=== PATIENT | female | born 1980 | race Caucasian/White ===

== ENCOUNTER 2016-11-22 05:36 | Day surgery (SDC) | payer OTHER ==
[~2016-11-22] VITALS: Ht 165.1 cm; Wt 64.6 kg
[~2016-11-22 05:36] MED LIST: ONDA-43 PO; PANT40TA3 PO; UDREG PO
[2016-11-22 06:34] VITALS: Ht 165.1 cm; Wt 64.6 kg
[2016-11-22] MEDS ORDERED: IRON (06:41)
[2016-11-22 07:06] VITALS: BP 109/67; PULSE 67; RESP 18
[2016-11-22] MEDS ORDERED: FENTAnyl 50 MCG/ML VIAL ONE (07:39)
[2016-11-22] MEDS ORDERED: MIDAZOLAM 1 MG/ML 2 ML INJ ONE (07:39)
[2016-11-22 07:55] VITALS: BP 107/62; PULSE 74; RESP 18
--- NOTE | 2016-11-22 07:58 | GILP ---
DATE OF PROCEDURE: NAME OF PROCEDURE: Esophagogastroduodenoscopy and biopsy. SURGEON: Jeremy Howard MD PREOPERATIVE DIAGNOSIS: Abdominal pain. POSTOPERATIVE DIAGNOSES: 1. Gastritis. 2. Gastric mucosal biopsies were taken for Helicobacter pylori test. INDICATION FOR THE PROCEDURE: Ms. Maria Esther Schuster is a 36-year-old female patient who had up per abdominal pain, not responding to therapy. The patient was scheduled for endoscopic examination for further evaluation. The procedure and possible complications are well explained to the patient, she understood and conse nted to the procedure. DESCRIPTION OF PROCEDURE: Under the influence of fentanyl and Versed, the gastroscope was carefully introduced into the esophagus, and under direct vision, it was advanced to the stomach and through the pylorus into the duodenal bulb and descending duodenum. FINDINGS: ESOPHAGUS: The mucosa was normal. STOMACH: The patient had gastritis. Gastric mucosal biopsies were taken for H pylori test. DUODENUM: Normal. She tolerated the procedure very well and there was no complication from the procedure. At the end of the procedure, she was awake with stable vital signs, and she was discharged home to the care of her family. IMPRESSION: 1. Gastritis. 2. Gastric mucosal biopsies were taken for Helicobacter pylori test. PLAN: 1. Continue pantoprazole. 2. Bentyl 10 mg p.o. t.i.d. p.r.n. for pain. 3. Await histopathology report. 4. Await abdominal ultrasound report. Dictated By: JEREMY GLORIA/KIYA Conf#: [id number] DID#: [id number]
== END 2016-11-22 10:11 | disposition home or self-care (01) ==
LOC: GIL 05:36
PROVIDERS: ATTEND Internal Medicine Gastroenterology
DX: K29.70 Gastritis, unspecified, without bleeding (principal)
CPT/HCPCS: 45378; 84703; 88305; J2250; J3010; Z7610